=== PATIENT | male | born 1965 | race Caucasian/White ===

== ENCOUNTER 2020-02-10 19:01 | Emergency (ER) | payer OTHER, SELFPAY ==
--- NOTE | 2020-02-10 19:03 | XR_ITS ---
WS: [id number] Portable AP upright chest, 02/10/2020 Clinical Data: cp Comparison: None. Findings: No nodules, masses or effusions are seen. The heart is normal. The pulmonary vascularity is not increased. No pneumonia or pneumothorax is seen. XR/XR chest 1V portable [id number] Impression: Negative chest.
--- NOTE | 2020-02-10 19:04 | ECG_ITS ---
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 Measurements Intervals [place] Rate: 74 P: 16 NV: 152 QRS: 0 QRSD: 103 T: 21 QT: 392 QTc: 435 Interpretive Statements SINUS RHYTHM No previous ECG available for comparison Electronically Signed On 02-12-2020 20:11:16 ASSISTANT NURSE MANAGER by Gaudencio Moreno M.D. [email or web address]
[2020-02-10 19:19] VITALS: BP 154/96; PULSE 75; RESP 16; TEMP 36.7; O2SAT 97; BMI 34.0
--- NOTE | 2020-02-10 21:04 | ECG_ITS ---
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 Measurements Intervals [place] Rate: 68 P: 30 OR: 164 QRS: 12 QRSD: 105 T: 24 QT: 403 QTc: 431 Interpretive Statements SINUS RHYTHM POSSIBLE RIGHT VENTRICULAR CONDUCTION DELAY [RSR (QR) IN V1/V2] Compared to ECG 02/10/2020 19:31:13 No significant changes Electronically Signed On 02-12-2020 20:23:28 WET SANDER by Gaudencio Moreno M.D. [id number]
--- NOTE | 2020-02-10 21:36 | ED_ITS ---
HPI - Chest Pain General: Chief Complaint: Chest Pain Stated Complaint: Heart/chest issues Time Seen by Provider: 02/10/20 21:20 Source: patient Mode of arrival: ambulatory Limitations: no limitations History of Present Illness: HPI narrative: 54-year-old male states he has been having intermittent chest pain since Saturday. He states the pain is a catching pain that is mild when he has it. He states that it happens every 2-3 hours. He states it does not last very long. He denies any shortness of breath or diaphoresis with it denies any worsening improving factors. He denies any pain currently. Patient has no history of heart disease or hypertension. Associated symptoms: Deny abdominal pain, dyspnea, fever(s), nausea or vomiting Review of Systems Const: Denies: fever(s), chills, body aches or change in appetite Eyes: Denies: blurry vision or eye discomfort ENMT: Denies: throat pain or dental pain Card: Reports: chest pain Resp: Denies: dyspnea GI: Denies: abdominal pain, nausea, vomiting or diarrhea : Denies: dysuria Musc: Denies: neck pain or back pain Skin/Breast: Denies: rash Neuro: Denies: headache(s) Psych: Denies: depression Zackery/Lymph: Denies: easy bruising All/Imm: Denies: urticaria Physical Exam Const: COMMON NORMALS: no acute distress, patient oriented x3 and healthy appearing HENMT: COMMON NORMALS: normocephalic and atraumatic HEAD & SCALP: n ormocephalic and atraumatic Eye: COMMON NORMALS: Equal, round and reactive pupils present and EOMs intact bilaterally PUPIL: Yes Equal, round and reactive pupils present Neck/C-Spine: COMMON NORMALS: full ROM and supple Chest: COMMONS NORMALS: normal inspection of the chest and normal palpation of entire chest wall Resp: COMMON NORMALS: normal respiratory effort, No retractions, No use of accessory muscles and clear to auscultation bilaterally AUSCULTATION: clear to auscultation bilaterally Cardio: COMMON NORMALS: regular rate, regular rhythm and No murmurs present (Cardio) RATE: regular rate RHYTHM: regular rhythm GI: COMMON NORMALS: Normal to inspection, nondistended, normoactive bowel sounds present, Soft to palpation, non-tender and no masses PALPATION: Yes Soft to palpation Extremity: COMMON NORMALS: normal to inspection and full ROM Neuro: COMMON NORMALS: patient oriented x3, moves all extremities and no focal motor deficits Psych: COMMON NORMALS: mental status grossly normal, Normal thought process present and cooperative THOUGHT PROCESS: Normal thought process present Skin: COMMON NORMALS: no rashes or lesions noted and no wounds GENERAL SKIN EXAM: no rashes or lesions noted Course Vital Signs: Vital signs: Vital Signs Temperature 98.0 F 02/10/20 23:51 Pulse Rate 72 02/10/20 23:51 Respiratory Rate 16 02/10/20 23:51 Blood Pressure 142/78 02/10/20 23:51 Pulse Oximetry 96 02/10/20 23:51 MDM - Chest Pain MDM Narrative: Medical decision making narrative: Eliseo presents here with chest pain is atypical in nature. Initial and repeat troponin here are normal. Patient's EKG and x-ray here are normal as well. He has no signs of pulmonary embolism. He is stable for discharge and is to follow-up his PCP in 3 to 5 days and return if worsening. He understands agrees the plan. Lab Data: Labs: Lab Results 02/10/20 02/10/20 02/10/20 Range/Units 21:55 21:55 21:55 WBC 6.6 (4.0-10.0) 10^3/ uL RBC 5.14 (4.1-5.3) 10^6/u L Hgb 15.5 (11.7-16.6) g/dL Hct 46.3 (42.0-52.0) % MCV 90.1 (80-94) fL MCH 30.2 (28.0-34.0) pg MCHC 33.5 (30.0-36.0) g/dL RDW 11.7 L (12.1-15.1) % Plt Count 200 (130-400) 10^3/c mm MPV 10.4 (7.4-10.4) fL Neut % (Auto) 51.7 % Lymph % (Auto) 34.6 % [place] % (Auto) 9.1 % Eos % (Auto) 2.6 % Baso % (Auto) 1.5 % Neut # (Auto) 3.42 (1.8-7.7) 10^3/u L Lymph # (Auto) 2.3 (0.8-4.8) 10^3/u L [place] # (Auto) 0.6 (0.2-0.9) 10^3/u L Eos # (Auto) 0.2 (0.0-0.8) 10^3/u L Baso # (Auto) 0.1 (0.0-0.1) 10^3/u L Nucleated RBC % (a uto) 0 % Nucleated RBCs # 0.0 /100WBC Sodium 142 (136-145) mmol/L Potassium 4.4 (3.5-5.1) mmol/L Chloride 104 (98-107) mmol/L Carbon Dioxide 27 (22-29) mmol/L Anion Gap 15.4 (5-19) BUN 20 (6-20) mg/dL Creatinine 0.9 (0.7-1.2) mg/dL GFR Calculation 87.3 L (90-130) mL/min Glucose 101 (65-115) mg/dL Calculated Osmolal ity 297 H (285-295) mOsm/k g Calcium 9.7 (8.5-10.5) mg/dL Total Bilirubin 1.2 (0.15-1.2) mg/dL AST 18 (0-40) U/L ALT 19 (0-41) U/L Alkaline Phosphata se 71 (40-130) IU/L Troponin T Baselin e 10 (0-15) ng/L Troponin T 120 Min [place] (0-15) ng/L Delta Troponin T (0-10) ABS# Total Protein 7.1 (6.6-8.7) g/dL Albumin 4.9 (3.5-5.2) g/dL Globulin 2.2 (1.3-4.6) g/dL 02/10/20 Range/Units 23:00 WBC (4.0-10.0) 10^3/ uL RBC (4.1-5.3) 10^6/u L Hgb (11.7-16.6) g/dL Hct (42.0-52.0) % MCV (80-94) fL MCH (28.0-34.0) pg MCHC (30.0-36.0) g/dL RDW (12.1-15.1) % Plt Count (130-400) 10^3/c mm MPV (7.4-10.4) fL Neut % (Auto) % Lymph % (Auto) % [place] % (Auto) % Eos % (Auto) % Baso % (Auto) % Neut # (Auto) (1.8-7.7) 10^3/u L Lymph # (Auto) (0.8-4.8) 10^3/u L [place] # (Auto) (0.2-0.9) 10^3/u L Eos # (Auto) (0.0-0.8) 10^3/u L Baso # (Auto) (0.0-0.1) 10^3/u L Nucleated RBC % (a uto) % Nucleated RBCs # /100WBC Sodium (136-145) mmol/L Potassium (3.5-5.1) mmol/L Chloride (98-107) mmol/L Carbon Dioxide (22-29) mmol/L Anion Gap (5-19) BUN (6-20) mg/dL Creatinine (0.7-1.2) mg/dL GFR Calculation (90-130) mL/min Glucose (65-115) mg/dL Calculated Osmolal ity (285-295) mOsm/k g Calcium (8.5-10.5) mg/dL Total Bilirubin (0.15-1.2) mg/dL AST (0-40) U/L ALT (0-41) U/L Alkaline Phosphata se (40-130) IU/L Troponin T Baselin e (0-15) ng/L Troponin T 120 Min [place] 12.90 (0-15) ng/L Delta Troponin T 2.90 (0-10) ABS# Total Protein (6.6-8.7) g/dL Albumin (3.5-5.2) g/dL Globulin (1.3-4.6) g/dL Imaging Data^: CXR: Attestation: I personally reviewed and interpreted this imaging study as follows: My impression: no acute abnormality EKG Data^: EKG 1: Attestation: I personally reviewed and interpreted this EKG as follows: EKG interpretation date: 02/10/20 EKG interpretation time: 21:33 Interpretation: nsr hr [address] or t wave abnormalities qrs 105 qtc 421 EKG 2: Attestation: I personally reviewed and interpreted this EKG as follows: EKG interpretation date: 02/10/20 Interpretation: nsr hr [address] or t wave abnormalities qrs 103 qqtc 419 Discharge Plan Discharge Patient Disposition: Home Clinical Impression: Chest pain Qualifiers: Chest pain type: unspecified Qualified Code(s): R07.9 - Chest pain, unspecified Condition: Stable Prescriptions: No Action Multivitamin-20 Tablet 1 tab PO DAILY RF: 0 aspirin 325 mg Tablet 650 mg PO Q4H PRN (Reason: Pain) RF: 0 Discharge Orders: Discharge Order (Routine); Ordered 02/10/20 Ordered By: Cristel Ni Discharge Diet: Advance as tolerated Discharge Activity: Resume usual activity Patient Instructions: Chest Pain (ED) Coding Level of Care Code ED Financial Services Consultant for Chg Fwd Exam Comprehensive
[2020-02-10 21:56] VITALS: BP 132/82; PULSE 68; RESP 16; O2SAT 95
[2020-02-10 22:00] VITALS: BP 132/82; PULSE 70; RESP 17; O2SAT 95
[2020-02-10 22:12] LABS: Basophils # 0.1 10^3/uL (0.0-0.1); Basophils % 1.5 %; Eosinophils # 0.2 10^3/uL (0.0-0.8); Eosinophils % 2.6 %; Hematocrit 46.3 % (42.0-52.0); Hemoglobin 15.5 g/dL (11.7-16.6); Lymphocytes # 2.3 10^3/uL (0.8-4.8); Lymphocytes % 34.6 %; Mean Corpuscular HGB Conc 33.5 g/dL (30.0-36.0); Mean Corpuscular Hemoglobin 30.2 pg (28.0-34.0); Mean Corpuscular Volume 90.1 fL (80-94); Mean Platelet Volume 10.4 fL (7.4-10.4); Monocytes # 0.6 10^3/uL (0.2-0.9); Monocytes % 9.1 %; Neutrophils # 3.42 10^3/uL (1.8-7.7); Neutrophils % 51.7 %; Nucleated Red Blood Cells % 0 %; Platelet Count 200 10^3/cmm (130-400); Red Blood Count 5.14 10^6/uL (4.1-5.3); Red Cell Distribution Width 11.7 % (12.1-15.1); White Blood Count 6.6 10^3/uL (4.0-10.0)
[2020-02-10 22:27] LABS: Troponin(5th) Baseline 10 ng/L (0-15)
[2020-02-10 22:45] LABS: Alanine Aminotransferase 19 U/L (0-41); Albumin Level 4.9 g/dL (3.5-5.2); Alkaline Phosphatase 71 IU/L (40-130); Aspartate Amino Transferase 18 U/L (0-40); Blood Urea Nitrogen 20 mg/dL (6-20); Calcium 9.7 mg/dL (8.5-10.5); Carbon Dioxide 27 mmol/L (22-29); Chloride 104 mmol/L (98-107); Creatinine Clr Calc Pharmacy 133.3661; Globulin 2.2 g/dL (1.3-4.6); Glomerular Filtration Rate 87.3 mL/min (90-130); Glucose 101 mg/dL (65-115); Osmolality Calculated 297 mOsm/kg (285-295); Sodium 142 mmol/L (136-145); Total Bilirubin 1.2 mg/dL (0.15-1.2); Total Protein 7.1 g/dL (6.6-8.7)
[2020-02-10 22:46] LABS: Anion Gap 15.4 (5-19); Potassium 4.4 mmol/L (3.5-5.1)
[2020-02-10 23:00] VITALS: BP 125/75; PULSE 67; RESP 18; O2SAT 93
[2020-02-10 23:30] VITALS: BP 142/78; PULSE 66; RESP 19; O2SAT 95
[2020-02-10 23:51] VITALS: BP 142/78; PULSE 72; RESP 16; TEMP 36.7; O2SAT 96
== END 2020-02-10 23:51 | disposition home or self-care (01) ==
PROVIDERS: Emergency Provider Emergency Medicine
DX: R07.9 Chest pain, unspecified (principal); Z79.82 Long term (current) use of aspirin
CPT/HCPCS: 12345; 71045; 80053; 84484; 85025; 93005; 99283